=== PATIENT | female | born 1990 | race African-American/Black ===

== ENCOUNTER 2020-07-12 09:11 | Emergency (ER) | payer SELFPAY ==
[~2020-07-12] VITALS: Ht 165.1 cm; Wt 59.0 kg
[~2020-07-12 09:11] MED LIST: BIRTH CONTROL IMPLAN
--- NOTE | 2020-07-12 09:23 | NUR ---
at bedside for assessment at this time
[2020-07-12] MEDS ORDERED: NAPR-1164 PO (09:41)
[2020-07-12] MEDS ORDERED: ACET-2154 PO (09:41)
[2020-07-12] MEDS ORDERED: HYDR28.316 RC (09:41)
--- NOTE | 2020-07-12 09:49 | NUR ---
Patient discharged to home in stable condition. Took all belongings, no signs of acute distress noted, Rx given, Written and verbal after care instructions given. Patient verbalizes understanding of instructions. Stressed follow up or return to ER for worsening s/s.
[2020-07-12 09:53] VITALS: BP 120/76
== END 2020-07-12 09:54 | disposition home or self-care (01) ==
LOC: ER 09:11
DX: K64.4 Residual hemorrhoidal skin tags (principal); F17.210 Nicotine dependence, cigarettes, uncomplicated; Z83.3 Family history of diabetes mellitus
CPT/HCPCS: A4663